=== PATIENT | male | born 1945 | race Caucasian/White ===

== ENCOUNTER 2016-11-16 14:52 | Inpatient (IN) | payer MEDICARE, MEDICAID ==
[~2016-11-16] VITALS: Ht 175.3 cm; Wt 86.2 kg
--- NOTE | 2016-11-16 01:50 | NUR ---
Pt in bed sleeping. Flagyl and Vanco given. No complains of pain at this time. Continue monitoring.
[2016-11-16] MEDS ORDERED: ALBU8.5H8 INH (15:24)
[2016-11-16 16:14] LABS: CARBON DIOXIDE 29 mmol/L (21-32); CHLORIDE 106 mmol/L (98-107); CREATININE 0.9 mg/dL (0.6-1.3); GLUCOSE 103 mg/dL (74-106); POTASSIUM 5.4 mmol/L (3.5-5.1); UREA NITROGEN, BLOOD 16 mg/dL (7-18)
[2016-11-16 16:15] LABS: THYROID STIMULATING HORMONE 5.362 mIU/mL (0.358-3.740)
[2016-11-16 16:27] LABS: ALANINE AMINOTRANSFERASE 27 U/L (16-63); ALKALINE PHOSPHATASE 129 U/L (50-136); ASPARTATE AMINOTRANSFERASE 38 U/L (15-37); BILIRUBIN,DIRECT 0.2 mg/dL (0.0-0.2); BILIRUBIN,TOTAL 0.9 mg/dL (0.2-1.0); TOTAL PROTEIN, SERUM 6.9 g/dL (6.4-8.2)
--- NOTE | 2016-11-16 16:30 | NUR ---
PT IS IN ROOM #2A. DR JUSTIN EVALUATED THE PT.
[2016-11-16 16:33] LABS: BASOPHILS # (AUTO) 0.1 K/uL (0.0-8.0); BASOPHILS % (AUTO) 0.8 % (0.0-2.0); EOSINOPHILS # (AUTO) 0.1 K/uL (0.0-0.7); EOSINOPHILS % (AUTO) 0.6 % (0.0-7.0); HEMATOCRIT 47.7 % (40-50); HEMOGLOBIN 15.3 G/DL (14.0-18.0); LYMPHOCYTES # (AUTO) 1.9 K/UL (0.8-4.8); LYMPHOCYTES % (AUTO) 13.3 % (20.5-51.5); MEAN CORPUSCULAR HEMOGLOBIN 31.4 UUG (27.0-31.0); MEAN CORPUSCULAR HGB CONC 32 g/dL (32.0-37.0); MONOCYTES # (AUTO) 1.2 K/UL (0.1-1.30); MONOCYTES % (AUTO) 8.7 % (0.0-11.0); NEUTROPHILS # (AUTO) 10.8 K/UL (1.8-8.9); NEUTROPHILS % (AUTO) 76.6 % (38.5-71.5); RED BLOOD CELL COUNT(AUTO) 4.87 MIL/UL (4.7-6.1); WHITE BLOOD COUNT (AUTO) 14.1 K/UL (4.0-11.2)
--- NOTE | 2016-11-16 17:42 | NUR ---
PT WAS TRANSFERED TO ROOM #205. REPORT WAS GIVEN TO RN M/S.
[2016-11-16 18:07] LABS: PLATELET COUNT (AUTO) 225 K/UL (150-450)
[2016-11-16 18:15] VITALS: BP 141/88
--- NOTE | 2016-11-16 18:30 | NUR ---
VSS. TELE BBB @ 90's. PT has very poor hygiene. hospital food service worker arie ordered. Bed alarm on. PT to be admitted by manager shift. Call light is within reach.
--- NOTE | 2016-11-16 19:25 | NUR ---
Pt in bed alert, awake, with complaints of lower back pain 10/10. Bilateral lower extremities noted with redness and swelling. Dr Goodman made aware. [place] given for pain management.
[2016-11-16] MEDS ORDERED: ZOLPIDEM 5 MG TABLET PO PRN (19:30)
[2016-11-16] MEDS ORDERED: MAGNESIUM HYDROXIDE 30 ML LIQUID UDC PO PRN (19:30)
[2016-11-16] MEDS ORDERED: ACETAMINOPHEN 325 MG TABLET PO PRN (19:30)
[2016-11-16] MEDS ORDERED: ONDANSETRON 4 MG/2 ML VIAL IV PRN (19:30)
[2016-11-16] MEDS ORDERED: ALBUTEROL SULFATE 2.5 MG/3 ML NEBU NEB PRN (19:30)
--- NOTE | 2016-11-16 19:41 | NUR ---
CLINICAL PHARMACY NOTE:VANCOMYCIN DOSING Request for vancomycin dosing on 71 y/o male 5'9" 190lbs for BLE cellulitis /Sirs Temp 98.6f BUN 16 Scr. 0.9 WBC 14.1 also on Levaquin Start Vancomycin 1gm ivpb q12h estimated trough 16. Will order trough level prior to 4th dose. Will continue to monitor
[2016-11-16 20:00] VITALS: BP 106/67
[2016-11-16] MEDS: FUROSEMIDE 20 MG/2 ML VIAL IV SCH (20:54)
[2016-11-16] MEDS: ENOXAPARIN SODIUM 40 MG/0.4 ML DISP.SYRIN SQ SCH (20:54)
[2016-11-16] MEDS: HYDROCODONE/APAP 5-325MG TABLET PO PRN (20:55)
[2016-11-16] MEDS: DOCUSATE SODIUM 100 MG CAPSULE PO SCH (20:55)
[2016-11-16] MEDS ORDERED: DOCUSATE SODIUM 250 MG CAPSULE PO SCH (21:00)
[2016-11-16] MEDS: LEVOFLOXACIN 500 MG/D5W 500 MG in PREMIXED 1 EACH IV SCH (21:15)
[2016-11-16] MEDS: VANCOMYCIN IV 1 G in PREMIXED 0 EACH IV SCH (23:03)
[2016-11-17 04:00] VITALS: BP 128/80
[2016-11-17] MEDS: PANTOPRAZOLE SODIUM 40 MG TABLET.DR PO SCH (05:39)
[2016-11-17] MEDS: HYDROCODONE/APAP 5-325MG TABLET PO PRN ×2 (05:40→10:54)
[2016-11-17 05:56] LABS: *BILIRUBIN,URIN NEGATIVE (NEGATIVE); *BLOOD, URINE NEGATIVE (NEGATIVE); *CLARITY,URINE CLEAR (CLEAR); *COLOR,URINE YELLOW (YELLOW); *KETONES,URINE NEGATIVE (NEGATIVE); *PROTEIN,URINE NEGATIVE (NEGATIVE); LEUKOCYTE ESTERASE ,URINE NEGATIVE (NEGATIVE); NITRITE, URINE NEGATIVE (NEGATIVE); PH,URINE 5.5 (5.0-8.0); UGLUCOSE NEGATIVE (NEGATIVE)
[2016-11-17 07:02] LABS: BACTERIA,URINE FEW /HPF (NONE SEEN); RBC,URINE 0-3 /HPF (0-3); SQUAMOUS EPITHELIAL CELL,UR FEW /HPF (NONE SEEN); WBC,URINE 0-3 /HPF (0-3)
[2016-11-17] MEDS: ASPIRIN 81 MG TAB.CHEW PO SCH (08:20)
[2016-11-17] MEDS: FUROSEMIDE 20 MG/2 ML VIAL IV SCH ×2 (08:22→16:59)
--- NOTE | 2016-11-17 08:59 | NUR ---
PT AWAKE, ALERT, AND ORIENTED. EATING BREAKFAST WHILE LAYING IN THE SUPINE POSITION FOR COMFORT, REFUSED TO SIT UP. ALL MORNING MEDICATIONS PROVIDED PER MD ORDERS. PT TAKEN DOWN FOR CT AT THIS TIME.
[2016-11-17 09:14] LABS: BASOPHILS # (AUTO) 0.1 K/uL (0.0-8.0); BASOPHILS % (AUTO) 0.9 % (0.0-2.0); EOSINOPHILS # (AUTO) 0.1 K/uL (0.0-0.7); HEMATOCRIT 48.5 % (40-50); HEMOGLOBIN 15.9 G/DL (14.0-18.0); LYMPHOCYTES # (AUTO) 1.7 K/UL (0.8-4.8); LYMPHOCYTES % (AUTO) 11.8 % (20.5-51.5); MEAN CORPUSCULAR HEMOGLOBIN 31.9 UUG (27.0-31.0); MEAN CORPUSCULAR HGB CONC 33 g/dL (32.0-37.0); MEAN CORPUSCULAR VOLUME 97.7 FL (82.0-92.0); MONOCYTES # (AUTO) 1.4 K/UL (0.1-1.30); MONOCYTES % (AUTO) 9.9 % (0.0-11.0); NEUTROPHILS # (AUTO) 10.8 K/UL (1.8-8.9); NEUTROPHILS % (AUTO) 76.4 % (38.5-71.5); RED BLOOD CELL COUNT(AUTO) 4.97 MIL/UL (4.7-6.1); WHITE BLOOD COUNT (AUTO) 14.1 K/UL (4.0-11.2)
[2016-11-17 10:08] LABS: ALANINE AMINOTRANSFERASE 25 U/L (16-63); ALKALINE PHOSPHATASE 134 U/L (50-136); ASPARTATE AMINOTRANSFERASE 32 U/L (15-37); CARBON DIOXIDE 32 mmol/L (21-32); CHLORIDE 104 mmol/L (98-107); CHOLESTEROL 105 mg/dL (<200); GLUCOSE 105 mg/dL (74-106); HDL CHOLESTEROL 51 mg/dL (40-60); MAGNESIUM 2.1 mg/dL (1.8-2.4); PHOSPHOROUS 3.2 mg/dL (2.5-4.9); POTASSIUM 3.9 mmol/L (3.5-5.1); TOTAL PROTEIN, SERUM 7.4 g/dL (6.4-8.2); TRIGLYCERIDES 67 MG/DL (30-150); UREA NITROGEN, BLOOD 13 mg/dL (7-18); URIC ACID 5.3 mg/dL (3.5-7.2)
[2016-11-17] MEDS: VANCOMYCIN IV 1 G in PREMIXED 0 EACH IV SCH ×2 (10:13→21:11)
[2016-11-17 10:23] LABS: PLATELET COUNT (AUTO) 229 K/UL (150-450)
[2016-11-17 10:36] LABS: THYROID STIMULATING HORMONE 4.446 mIU/mL (0.358-3.740)
--- NOTE | 2016-11-17 10:43 | NUR ---
NEW IV STARTED IN LEFT HAND 20 TA[place]NA, DO TO OLD IV NOT BEING PATENT. OLD IV REMOVED. VANCO STARTED.
[2016-11-17 11:28] VITALS: BP 140/75
--- NOTE | 2016-11-17 12:33 | NUR ---
CLINICAL PHARMACY NOTE:VANCOMYCIN DOSING Subjective: To continue vancomycin dosing on 71 y/o male 5'9" 190lbs for BLE cellulitis /Sirs Objective: Temp 98 BUN 13 Scr. 1.0 WBC 14.1 also on Levaquin Assessment/Plan: Continue Vancomycin 1gm ivpb q12h estimated trough 16. Trough ordered beofre 4th scheduled dose (due tomorrow at 0830). Will check trough tomorrow am and adjust as needed. Will continue to monitor
[2016-11-17 15:22] VITALS: BP 122/47
--- NOTE | 2016-11-17 18:28 | NUR ---
PT SITTING UP IN BED. BED BATH RECEIVED. O2 SAT 80-90%, PLACED ON 2L NC RESULTING IN AN ELEVATION OF 02 SAT UP TO 92%. NO RESPIRATORY DISTRESS NOTED AT THIS TIME. PT REQUESTED TO GO OUTSIDE TO SMOKE A CIGARETTE. REMINDED PT OF HOSPITAL RULES PERTAINING TO SMOKING WHILE ON O2. WILL CONTINUE TO MONITOR 02 SAT.
[2016-11-17 20:00] VITALS: BP 128/65
[2016-11-17] MEDS: NICOTINE 21 MG/24HR PATCH TD SCH (20:33)
[2016-11-17] MEDS: DOCUSATE SODIUM 100 MG CAPSULE PO SCH (20:33)
[2016-11-17] MEDS: LEVOFLOXACIN 500 MG/D5W 500 MG in PREMIXED 1 EACH IV SCH (20:33)
[2016-11-17] MEDS: ENOXAPARIN SODIUM 40 MG/0.4 ML DISP.SYRIN SQ SCH (20:34)
[2016-11-18] VITALS: BP 131/48
[2016-11-18 04:00] VITALS: BP 124/68
[2016-11-18] MEDS: HYDROCODONE/APAP 5-325MG TABLET PO PRN (04:00)
[2016-11-18] MEDS: PANTOPRAZOLE SODIUM 40 MG TABLET.DR PO SCH (06:03)
[2016-11-18 06:50] LABS: BASOPHILS # (AUTO) 0.2 K/uL (0.0-8.0); BASOPHILS % (AUTO) 1.1 % (0.0-2.0); EOSINOPHILS # (AUTO) 0.1 K/uL (0.0-0.7); EOSINOPHILS % (AUTO) 0.7 % (0.0-7.0); HEMATOCRIT 48.8 % (40-50); HEMOGLOBIN 15.9 G/DL (14.0-18.0); LYMPHOCYTES % (AUTO) 14.6 % (20.5-51.5); MEAN CORPUSCULAR HEMOGLOBIN 31.8 UUG (27.0-31.0); MEAN CORPUSCULAR HGB CONC 33 g/dL (32.0-37.0); MEAN CORPUSCULAR VOLUME 97.8 FL (82.0-92.0); MONOCYTES # (AUTO) 1.3 K/UL (0.1-1.30); MONOCYTES % (AUTO) 9.4 % (0.0-11.0); NEUTROPHILS # (AUTO) 10.1 K/UL (1.8-8.9); NEUTROPHILS % (AUTO) 74.2 % (38.5-71.5); RED BLOOD CELL COUNT(AUTO) 4.99 MIL/UL (4.7-6.1); WHITE BLOOD COUNT (AUTO) 13.7 K/UL (4.0-11.2)
[2016-11-18 06:56] LABS: CARBON DIOXIDE 34 mmol/L (21-32); CHLORIDE 103 mmol/L (98-107); CREATININE 0.9 mg/dL (0.6-1.3); GLUCOSE 109 mg/dL (74-106); MAGNESIUM 1.8 mg/dL (1.8-2.4); PHOSPHOROUS 3.3 mg/dL (2.5-4.9); POTASSIUM 3.9 mmol/L (3.5-5.1); UREA NITROGEN, BLOOD 12 mg/dL (7-18)
[2016-11-18] MEDS: FUROSEMIDE 20 MG/2 ML VIAL IV SCH ×2 (08:50→18:09)
[2016-11-18] MEDS: ASPIRIN 81 MG TAB.CHEW PO SCH (08:50)
[2016-11-18 09:00] LABS: PLATELET COUNT (AUTO) 209 K/UL (150-450)
[2016-11-18] MEDS: VANCOMYCIN IV 1 G in PREMIXED 0 EACH IV SCH ×2 (10:29→21:02)
[2016-11-18] MEDS: MULTIVITAMINS,THERAPEUTIC TABLET PO SCH (10:29)
[2016-11-18 11:33] VITALS: BP 118/60
[2016-11-18] MEDS: GABAPENTIN 100 MG CAPSULE PO SCH ×2 (14:29→21:52)
[2016-11-18] MEDS: CHOLECALCIFEROL 1,000 UNIT TABLET PO SCH (14:29)
--- NOTE | 2016-11-18 14:46 | NUR ---
CLINICAL PHARMACY NOTE:VANCOMYCIN DOSING Subjective: To continue vancomycin dosing on 71 y/o male 5'9" 190lbs for BLE cellulitis /Sirs Objective: Temp 98.2 BUN 12 Scr. 0.9 WBC 13.7 also on Levaquin Assessment/Plan: Vancomycin trough was ordered today at 0830(prior to 4th dose)but not carried out as ordered(neither lab nor nurse reported pharmacy why level was not drawn). 4th dose of Vancomycin was given today at 1029(scheduled time was 9am). Will draw Vancomycin trough tomorrow at 0830(6th) dose. Will remind lab to draw on time. Will follow the level for further dosing.
[2016-11-18 15:30] VITALS: BP 134/66
[2016-11-18] MEDS: NICOTINE 21 MG/24HR PATCH TD SCH (18:09)
--- NOTE | 2016-11-18 18:50 | NUR ---
PT AWAKE IN BED, NO ACUTE DISTRESS NOTED. ON 2L NC. CONSENT SIGNED FOR RIGHT THORACENTISIS, SPUTUM SENT TO LAB. BED BATH GIVEN. ALL SAFETY AND COMFORT MEASURES MAINTAINED THROUGHOUT SHIFT.CALL LIGHT WITHIN REACH.
[2016-11-18] MEDS: IPRATROPIUM BROMIDE 0.5 MG/2.5 ML NEBU NEB SCH (19:28)
[2016-11-18] MEDS: ALBUTEROL SULFATE 2.5 MG/3 ML NEBU NEB SCH (19:28)
--- NOTE | 2016-11-18 19:30 | NUR ---
Received pt awake in bed. RT at bedside administering breathing tx. Pt denies sign and symptoms of respiratory distress. Denies any pain or discomfort at this time. HOB elevated. Safety measures and fall precautions maintained. Continue plan of care.
[2016-11-18] MEDS: LEVOFLOXACIN 500 MG/D5W 500 MG in PREMIXED 1 EACH IV SCH (20:03)
[2016-11-18 20:07] VITALS: BP 122/63
[2016-11-18] MEDS: DOCUSATE SODIUM 100 MG CAPSULE PO SCH (21:02)
[2016-11-18] MEDS: methylPREDNISolone SOD SUCC 40 MG/ML VIAL IV SCH (21:02)
[2016-11-18] MEDS: ENOXAPARIN SODIUM 40 MG/0.4 ML DISP.SYRIN SQ SCH (21:03)
[2016-11-19 05:11] VITALS: BP 119/69
[2016-11-19] MEDS: GABAPENTIN 100 MG CAPSULE PO SCH ×3 (05:39→21:27)
--- NOTE | 2016-11-19 05:52 | NUR ---
Shift end report: Pt. slept good throughout shift. All VS WNL. Breathing tx given as ordered and as needed. No complaint presented. All needs attended. No significant even reported. Continue current plan of care.
[2016-11-19] MEDS: IPRATROPIUM BROMIDE 0.5 MG/2.5 ML NEBU NEB SCH ×3 (07:35→19:12)
[2016-11-19] MEDS: ALBUTEROL SULFATE 2.5 MG/3 ML NEBU NEB SCH ×3 (07:35→19:12)
--- NOTE | 2016-11-19 07:40 | NUR ---
Found pt still sleeping, no sob noted, HHN tx not given at this time, nurse aware. Will check on patient later.
--- NOTE | 2016-11-19 08:00 | NUR ---
Sleeping, comfortable. O3 at 2L/NC, not in distress
[2016-11-19] MEDS: PANTOPRAZOLE SODIUM 40 MG TABLET.DR PO SCH (09:25)
[2016-11-19] MEDS: methylPREDNISolone SOD SUCC 40 MG/ML VIAL IV SCH ×2 (09:26→21:27)
[2016-11-19] MEDS: MULTIVITAMINS,THERAPEUTIC TABLET PO SCH (09:26)
[2016-11-19] MEDS: CHOLECALCIFEROL 1,000 UNIT TABLET PO SCH (09:26)
[2016-11-19] MEDS: ASPIRIN 81 MG TAB.CHEW PO SCH (09:26)
[2016-11-19] MEDS: FUROSEMIDE 20 MG/2 ML VIAL IV SCH ×2 (09:26→18:05)
[2016-11-19] MEDS: VANCOMYCIN IV 1 G in PREMIXED 0 EACH IV SCH ×2 (09:34→21:26)
--- NOTE | 2016-11-19 10:00 | NUR ---
Assisted out of bed, participated with PT.
[2016-11-19 11:07] VITALS: BP 100/44
--- NOTE | 2016-11-19 11:39 | NUR ---
CLINICAL PHARMACY NOTE:VANCOMYCIN DOSING Subjective: To continue vancomycin dosing on 71 y/o male 5'9" 190lbs for BLE cellulitis /Sirs Objective: Temp 98.5 BUN 12 (11/18) Scr. 0.9 (11/18) WBC 13.7 (11/18) also on Levaquin Trough: 15.2 (today at 0830) Assessment/Plan: As trough was within range this am, will continue same regimen of 1gm q12hr. Will continue monitoring renal function and will adjust if were to change. Will continue to follow
[2016-11-19] MEDS: ARIPIPRAZOLE 5 MG TABLET PO SCH (13:54)
[2016-11-19 15:05] VITALS: BP 112/70
--- NOTE | 2016-11-19 16:00 | NUR ---
S/P Thoracentesis with 900ml output. Portable CXR done. Called Dr. Huston for orders for Pleural fluid. Specimen sent to lab.
[2016-11-19] MEDS: NICOTINE 21 MG/24HR PATCH TD SCH (18:05)
--- NOTE | 2016-11-19 18:16 | NUR ---
Kept dry and comfortable , not in distress.
[2016-11-19 19:00] VITALS: BP 116/69
--- NOTE | 2016-11-19 19:40 | NUR ---
PATIENT ALERT AND AWAKE ON BED. NO SOB, USING 02 @ 2LPM VIA NC .NO C/O OF PAIN OR ANY DISCOMFORT. BILATERAL LOWER EXTREMITIES NOTED WITH REDNESS AN EDEMA. SAFETY MEASURES OBSERVED. WILL CONTINUE TO MONITOR. CALL LIGHT IN REACH
--- NOTE | 2016-11-19 19:45 | NUR ---
RECEIVED PATIENT IN BED. ALERT/ORIENTED WITH NO SIGNS OF PAIN, SOB. PATIENT VITALS STABLE AT START OF SHIFT. SKIN INTACT. IV SITE RIGHT FOREARM WITH 20G, ON CONTINUOUS NS AT 70CC/HR. STOMACH VISIBLY DISTENDED BOWEL SOUNDS ACTIVE IN ALL QUADRANTS. CALL LIGHT WITHIN REACH OF PATIENT. WILL CONTINUE TO MONITOR/ASSESS PATIENT THROUGHOUT SHIFT.
[2016-11-19] MEDS: LEVOFLOXACIN 500 MG/D5W 500 MG in PREMIXED 1 EACH IV SCH (19:53)
[2016-11-19] MEDS ORDERED: MIRTAZAPINE 15 MG TABLET PO SCH (21:00)
[2016-11-19] MEDS: ENOXAPARIN SODIUM 40 MG/0.4 ML DISP.SYRIN SQ SCH (21:27)
[2016-11-19] MEDS: DOCUSATE SODIUM 100 MG CAPSULE PO SCH (21:27)
[2016-11-20] MEDS: GABAPENTIN 100 MG CAPSULE PO SCH ×2 (05:02→13:19)
[2016-11-20 05:03] VITALS: BP 129/79
[2016-11-20 05:33] LABS: BASOPHILS # (AUTO) 0.1 K/uL (0.0-8.0); BASOPHILS % (AUTO) 0.5 % (0.0-2.0); EOSINOPHILS # (AUTO) 0.2 K/uL (0.0-0.7); EOSINOPHILS % (AUTO) 0.9 % (0.0-7.0); HEMATOCRIT 47.1 % (40-50); HEMOGLOBIN 15.1 G/DL (14.0-18.0); LYMPHOCYTES % (AUTO) 5.1 % (20.5-51.5); MEAN CORPUSCULAR HEMOGLOBIN 31.2 UUG (27.0-31.0); MEAN CORPUSCULAR HGB CONC 32 g/dL (32.0-37.0); MEAN CORPUSCULAR VOLUME 97.3 FL (82.0-92.0); MONOCYTES # (AUTO) 0.8 K/UL (0.1-1.30); MONOCYTES % (AUTO) 4.1 % (0.0-11.0); NEUTROPHILS # (AUTO) 17.8 K/UL (1.8-8.9); NEUTROPHILS % (AUTO) 89.4 % (38.5-71.5); PLATELET COUNT (AUTO) 209 K/UL (150-450); RED BLOOD CELL COUNT(AUTO) 4.84 MIL/UL (4.7-6.1); WHITE BLOOD COUNT (AUTO) 19.9 K/UL (4.0-11.2)
[2016-11-20 05:49] LABS: ALANINE AMINOTRANSFERASE 18 U/L (16-63); ALKALINE PHOSPHATASE 95 U/L (50-136); ASPARTATE AMINOTRANSFERASE 16 U/L (15-37); BILIRUBIN,TOTAL 0.3 mg/dL (0.2-1.0); GLUCOSE 200 mg/dL (74-106); TOTAL PROTEIN, SERUM 6.5 g/dL (6.4-8.2); UREA NITROGEN, BLOOD 23 mg/dL (7-18)
[2016-11-20 05:58] LABS: CHLORIDE 100 mmol/L (98-107); POTASSIUM 4.6 mmol/L (3.5-5.1)
[2016-11-20] MEDS: PANTOPRAZOLE SODIUM 40 MG TABLET.DR PO SCH (06:09)
[2016-11-20 06:16] LABS: CARBON DIOXIDE 40 mmol/L (21-32)
--- NOTE | 2016-11-20 06:24 | NUR ---
PATIENT AWAKE IN BED. NO SIGNS OF PAIN, SOB, OR DISCOMFORT. MEDICATIONS ADMINISTERED ORDERED. PATIENT COMPLIANT WITH ALL CARE. SAFETY MEASURES OBSERVED. CALL LIGHT PLACED WITHIN REACH OF PATIENT.
--- NOTE | 2016-11-20 06:30 | NUR ---
RECEIVED CRITICAL LAB VALUE FROM CO2 40. PAGED DR. WARD. [facility] REPORTED THAT DR. BYRD WILL F/U
[2016-11-20] MEDS: IPRATROPIUM BROMIDE 0.5 MG/2.5 ML NEBU NEB SCH ×3 (06:49→19:30)
[2016-11-20] MEDS: ALBUTEROL SULFATE 2.5 MG/3 ML NEBU NEB SCH ×3 (06:49→19:30)
--- NOTE | 2016-11-20 08:00 | NUR ---
RESTING NO SIGNS OF DISCOMFORT OR SOB,
[2016-11-20] MEDS: CHOLECALCIFEROL 1,000 UNIT TABLET PO SCH (08:26)
[2016-11-20] MEDS: MULTIVITAMINS,THERAPEUTIC TABLET PO SCH (08:26)
[2016-11-20] MEDS: ARIPIPRAZOLE 5 MG TABLET PO SCH (08:26)
[2016-11-20] MEDS: ASPIRIN 81 MG TAB.CHEW PO SCH (08:26)
[2016-11-20] MEDS: methylPREDNISolone SOD SUCC 40 MG/ML VIAL IV SCH (08:26)
[2016-11-20] MEDS: FUROSEMIDE 20 MG/2 ML VIAL IV SCH (08:27)
[2016-11-20] MEDS: VANCOMYCIN IV 1 G in PREMIXED 0 EACH IV SCH (08:28)
[2016-11-20 11:00] VITALS: BP 108/68
--- NOTE | 2016-11-20 11:32 | NUR ---
CLINICAL PHARMACY NOTE:VANCOMYCIN DOSING Subjective: To continue vancomycin dosing on 71 y/o male 5'9" 190lbs for BLE cellulitis /Sirs ht 5'9'' wt 190 lb Objective: Temp 98.4 BUN 23 Scr 1.0 WBC 19.9 Assessment/Plan: Will continue same regimen of vancomycin 1gm IVPB q12hr for today. Next dose is due today at 2100. Will continue monitoring renal function and will adjust if were to change. Will continue to follow
--- NOTE | 2016-11-20 12:00 | NUR ---
RESULTS OF CXR IN AWAITING MD REGARDING FURTHER PLAN OF CARE
--- NOTE | 2016-11-20 15:00 | NUR ---
DISCHARGE ORDER RECEIVED FROM DR BYRD TO [facility] FOR CONTINUITY OF CARE
[2016-11-20 15:16] VITALS: BP 122/63
[2016-11-20] MEDS ORDERED: CHOL10002 PO (15:30)
[2016-11-20] MEDS ORDERED: METH4TAB3 PO (15:30)
[2016-11-20] MEDS ORDERED: ACET325T53 PO (15:30)
[2016-11-20] MEDS ORDERED: RXVAN XX (15:30)
[2016-11-20] MEDS ORDERED: DOCU-141 PO (15:30)
[2016-11-20] MEDS ORDERED: FURO-152 PO (15:30)
[2016-11-20] MEDS ORDERED: ARIP5TAB10 PO (15:30)
[2016-11-20] MEDS ORDERED: NICO1PAT28 TD (15:30)
[2016-11-20] MEDS ORDERED: ALBU2.5V7 NEB (15:30)
[2016-11-20] MEDS ORDERED: DOCU100C36 PO (15:30)
[2016-11-20] MEDS ORDERED: ZOLP5TAB8 PO (15:30)
[2016-11-20] MEDS ORDERED: LEVO500T2 PO (15:30)
[2016-11-20] MEDS ORDERED: MIRT15TA7 PO (15:30)
[2016-11-20] MEDS ORDERED: MULT-24 PO (15:30)
[2016-11-20] MEDS ORDERED: TIOT18CA3 IH (15:30)
[2016-11-20] MEDS ORDERED: HYDR-3326 PO (15:30)
[2016-11-20] MEDS ORDERED: GABA-532 PO (15:30)
[2016-11-20] MEDS ORDERED: PANT40TA2 PO (15:30)
[2016-11-20] MEDS ORDERED: ASPI81TA31 PO (15:30)
[2016-11-20] MEDS ORDERED: MAGN400O6 PO (15:30)
--- NOTE | 2016-11-20 15:30 | NUR ---
REPORT GIVEN TO FOR [facility]. OPERATING ROOM MANAGER TIME 1900
[2016-11-20] MEDS ORDERED: FUROSEMIDE 20 MG TABLET PO SCH (17:00)
[2016-11-20] MEDS: NICOTINE 21 MG/24HR PATCH TD SCH (18:03)
--- NOTE | 2016-11-20 19:30 | NUR ---
RECEIVED PATIENT ALERT, IN NO ACUTE DISTRESS. PT TO BE D/C TO [facility]. DAY SHIFT RN PROVIDED REPORT TO ROSALIO MUNGUIA RESIDENTIAL SALES REPRESENTATIVE OF [facility] [phone]. D/C DOCUMENTS DONE, 1 ENVELOPE FOR H&P AND 1 ENVELOPE FOR MEDICATIONS.
--- NOTE | 2016-11-20 19:59 | NUR ---
Pt refused breathing tx at this time. No signs of respiratory distress noted. RN Paula aware.
[2016-11-20 20:15] VITALS: BP 111/61
--- NOTE | 2016-11-20 20:30 | NUR ---
PATIENT PICKED UP BY TRANSPORT TO BE TRANSFERRED TO [facility]. VS STABLE, PATIENT IN NO ACUTE DISTRESS, NO SOB, NO C/O OF CHEST PAIN. BELONGINGS TRANSFERRED WITH PATIENT. 2 ENVELOPES OF PATIENT'S MEDICAL RECORD PROVIDED TO PATIENT.
== END 2016-11-20 20:30 | DRG 291 ==
LOC: ER 14:57 → MED 17:23 → TELE 18:21 → MED 11-18 11:15
PROVIDERS: ADMIT Internal Medicine; ATTEND Internal Medicine
PROC: 0W993ZX Drainage of Right Pleural Cavity, Percutaneous Approach, Diagnostic (ICD-10-PCS; principal; 2016-11-19)
DX: I11.0 Hypertensive heart disease with heart failure (principal); E43 Unspecified severe protein-calorie malnutrition; J18.9 Pneumonia, unspecified organism; D68.59 Other primary thrombophilia; E27.8 Other specified disorders of adrenal gland; I27.2 Other secondary pulmonary hypertension; F33.3 Major depressive disorder, recurrent, severe with psychotic symptoms; J44.0 Chronic obstructive pulmonary disease with (acute) lower respiratory infection; L03.115 Cellulitis of right lower limb; L03.116 Cellulitis of left lower limb; M48.54XA Collapsed vertebra, not elsewhere classified, thoracic region, initial encounter for fracture; M48.56XA Collapsed vertebra, not elsewhere classified, lumbar region, initial encounter for fracture; J44.1 Chronic obstructive pulmonary disease with (acute) exacerbation; J98.11 Atelectasis; I50.23 Acute on chronic systolic (congestive) heart failure; E87.5 Hyperkalemia; B96.89 Other specified bacterial agents as the cause of diseases classified elsewhere; K42.9 Umbilical hernia without obstruction or gangrene; Z85.840 Personal history of malignant neoplasm of eye; Z90.49 Acquired absence of other specified parts of digestive tract; Z68.28 Body mass index [BMI] 28.0-28.9, adult; J20.9 Acute bronchitis, unspecified; F17.210 Nicotine dependence, cigarettes, uncomplicated; Z90.81 Acquired absence of spleen; E66.9 Obesity, unspecified; E55.9 Vitamin D deficiency, unspecified; E03.9 Hypothyroidism, unspecified; Z87.01 Personal history of pneumonia (recurrent); M80.88XD Other osteoporosis with current pathological fracture, vertebra(e), subsequent encounter for fracture with routine healing; M48.06 Spinal stenosis, lumbar region; I07.1 Rheumatic tricuspid insufficiency; Z74.09 Other reduced mobility; F10.10 Alcohol abuse, uncomplicated; G89.29 Other chronic pain; D75.89 Other specified diseases of blood and blood-forming organs; I70.0 Atherosclerosis of aorta
CPT/HCPCS: 32555; 36415; 70030-TC; 71010; 71250; 72131; 82306; 83615; 83735; 83986; 84100; 84155; 84443; 84550; 85025; 85730; 87040; 87070; 87086; 87205; 93005; 93307; 94640; 94664; A4663; J1650; J1940; J1956; J2920; J3370; J3590; J7050